=== PATIENT | female | born 1970 | race Caucasian/White ===

== ENCOUNTER 2016-10-18 20:28 | Emergency (ER) ==
[2016-10-18 21:14] LABS: MANUAL DIFF NEEDED? NO
--- NOTE | 2016-10-18 21:14 | ED EKG INTERP ---
EKG Interpretation - EKG Time of EKG reading by physician:: 20:38 EKG Read and Signed by:: Frederick Allen EKG Interpretation (*Must complete 3 of following elements*): Normal Rate: 97 Rhythm: NSR Comments: Normal ECG Attestation - Scribe Verification/Attestation Scribe:: Zahraa Sen Acting as Scribe for:: Frederick Allen Scribe documention review:: This chart was documented by a scribe and accurately reflects the service the provider performed and the decisions made by the provider.
[2016-10-18 21:19] LABS: BASO% 0.7 % (0.0-0.8); EOS# 0.25 X1000 (0.0-0.7); EOS% 2.7 % (0.0-10.0); HEMATOCRIT 35.7 % (37.0-47.0); HEMOGLOBIN 11.9 g/dL (12.0-16.0); IMM GRAN# 0.05 X1000 (0.0-0.04); IMM GRAN% 0.5 % (0.0-0.5); LYMPH# 2.61 X1000 (1.2-3.4); LYMPH% 27.7 % (20.5-51.1); MCH 29.5 PG (27-31); MCHC 33.3 g/dL (33-37); MCV 88.6 FL (81-99); MONO# 0.45 X1000 (0.11-0.59); MONO% 4.8 % (1.7-9.3); MPV 9.6 FL (7.4-10.4); NEUT% 63.6 % (42.2-75.2); PLT 270 X1000 (130-400); RBC 4.03 XMIL (4.2-5.4)
[2016-10-18 21:21] LABS: URINE CULTURE NEEDED? NO; URINE MICRO REVIEW NEEDED? NO; URINE SOURCE CLEAN CATCH
[2016-10-18 21:33] LABS: BILIRUBIN URINE NEGATIVE (NEGATIVE); BLOOD URINE NEGATIVE (NEGATIVE); COLOR YELLOW; GLUCOSE URINE NEGATIVE (NEGATIVE); LEUKOCYTES URINE NEGATIVE (NEGATIVE); NITRITE URINE NEGATIVE (NEGATIVE); PH URINE 5.5; PROTEIN URINE NEGATIVE (NEGATIVE); SP GRAVITY URINE 1.014; TURBIDITY URINE CLEAR (CLEAR); UR EPITHELIAL CELLS <10 /HPF (<10); URINE BACTERIA NEGATIVE /HPF; URINE RBC <10 /HPF (<10); URINE WBC <10 /HPF (<10); UROBILINOGEN URINE NORMAL (NORMAL)
[2016-10-18 21:37] LABS: ALBUMIN 3.8 g/dL (3.5-5.0); POTASSIUM 3.7 mmol/L (3.5-5.1); TOTAL BILIRUBIN 0.35 mg/dL (0.20-1.00); TOTAL PROTEIN 7.3 g/dL (6.3-8.3)
--- NOTE | 2016-10-18 23:00 | PROVIDER DOCUMENTATION ---
HPI-General Adult - General Chief Complaint: General Adult Stated Complaint: BUSCH, TINGLING IN LT ARM, BOTH LEGS AND FEET Time Seen by Provider: 10/18/16 21:26 Source: patient Allergies/Adverse Reactions: Patient Allergies Allergy/AdvReac Type Severity Reaction Status Date / Time No Known Allergies Allergy Verified 10/18/16 22:45 Home Medications: Home Medication List Medication Instructions Recorded Confirmed Last Taken Type Indomethacin 50 mg PO TID PRN #20 capsule 05/26/16 10/18/16 06/26/16 21:00 Rx Allopurinol 1 tab PO BID 06/08/16 06/27/16 10/18/16 History Cholecalciferol (Vitamin D3) 2,000 unit PO DAILY 10/18/16 10/18/16 10/18/16 History [Vitamin D3] Dicyclomine [Bentyl] 20 mg PO BID #20 capsule 10/18/16 Unknown Rx Phentermine HCl [Adipex-P] 37.5 mg PO DAILY 10/18/16 10/18/16 10/18/16 History - History of Present Illness -Gen Adult Nature of Presenting Problems: Pt. is 46 yof that presents with c/o LUQ pain and tingling in her hands and feet. Pt. reports she woke up this morning with pain. Pt. denies any other symptoms. Pt. reports she has had her GB removed. Location of Pain/Injury: reports: abdomen. denies: head, face, mouth, neck, chest, upper extremity, hand(s), back, pelvis, genitalia, lower extremity, feet , upper body, lower body, generalized Pain Radiation: reports: LUQ Quality of Pain: reports: sharp, stabbing. denies: aching, burning, cramping, dull, fullness, indigestion, pressure, tearing, throbbing, tightness Severity: reports: moderate. denies: mild, severe Onset/Duration: reports: abrupt, this morning Timing: reports: still present. denies: improving, gone now, resolved prior to arrival, intermittent, constant, changing over time, getting worse Context/Activities at Onset: reports: sleep. denies: recent emotional stress, recent physical stress, recent trauma history, possible bad food, cold exposure , out of country travel Modifying Factors: improves with: nothing Associated Symptoms: denies: anxiety, arm pain, back/neck pain, chest pain, constipation, cough, diaphoresis, diarrhea, dizziness, EENT symptoms, fatigue, fever/chills, genitourinary problems, headaches, heartburn, joint pain, loss of appetite, malaise, muscle aches, sinus congestion/drainage, nausea, rash, seizure, shortness of breath, sensory/motor loss, pain with inspiration, swelling/mass in abdomen, syncope, vomiting, weakness, trouble walking Similar Symptoms Previously?: Yes Recently seen or treated by another doctor?: No Review of Systems - Adult - REVIEW OF SYSTEMS - ADULT Constitutional: reports: see HPI. denies: chills, fever, fatique Eyes: reports: see HPI. denies: discharge, blurred vision, double vision Ears, Nose, Mouth & Throat: reports: see HPI. denies: ear pain, hearing loss, sinus problem, nose pain, loose teeth, mouth/dental pain, throat pain, throat swelling Cardiovascular: reports: see HPI. denies: chest pain, edema, irregular heart rate, orthopnea, syncope Respiratory: reports: see HPI. denies: cough, dyspnea on exertion, pleurisy, shortness of breath, wheezing Gastrointestinal: reports: see HPI, abdominal pain. denies: hematemesis, diarrhea, nausea, vomiting Genitourinary: reports: see HPI. denies: dysuria, discharge, frequent UTI's, hematuria, hesitency, urgency Musculoskeletal: reports: see HPI. denies: bone pain, back pain, joint pain, muscle aches, neck pain Integumentary: reports: see HPI. denies: hives, itching, rash, skin thickening Neurological: reports: see HPI. denies: ataxia, headache/migraines, numbness, seizure, tremors Psychiatric: reports: see HPI. denies: anxiety, depression, emotional problems , insomnia, panic attacks, suicidal thoughts Past History - Adult - PAST MEDICAL HISTORY-ADULT Review of Records: reports: Old Records Reviewed, Nursing Assessment Review, Medications Reviewed, Social history reviewed & non-contributory. Major Childhood Illnesses: reports: denies history Cardiovascular: reports: denies history Respiratory: reports: sleep apnea Gastrointestinal: reports: GERD Obstetrical/Gynecological: reports: denies history Genitourinary: reports: denies history Musculoskeletal: reports: chronic pain, other (gout, osteoarthritis) Neurological: reports: denies history Endocrine/Immune: reports: denies history Other Conditions: reports: other (gout) Additional History: Frequent ear infections - PRIOR SURGERIES/PROCEDURES Surgical/Procedure History: reports: cholecystectomy, hysterectomy, , other (tubal ligation) - PRIOR HOSPITALIZATIONS Prior Hospitalizations: reports: for other non-related - IMMUNIZATION STATUS Childhood Immunizations: See Nurse Assessment Flu Vaccine: See Nurse Assessment - FAMILY HISTORY Family History: reviewed, not pertinent - SOCIAL HISTORY Smoking: quit greater than 1 year Physical Exam-General - PHYSICAL EXAM-ADULT Initial Vital Signs Reviewed: Yes - CONSTITUTIONAL General Appearance: alert, mild distress, obese. negative: thin, anxious, lethargic, slow to respond, obtunded, combative - EYES Eyes: PERRL/EOMI, pink conjunctivae. negative: conjuctival exudate, scleral icterus, subconjunctival hemorrhage - HEAD, EARS, NOSE, MOUTH & THROAT HENMT: normocephalic/atraumatic, moist mucous membranes. negative: angioedema, frontal tenderness, maxillary tenderness - NECK Neck: non-tender, full range of motion, supple, normal inspection. negative: lymphadenopathy, trachial deviation, thyromegaly - RESPIRATORY Respiratory: lungs clear, normal breath sounds. negative: crackles, rales, rhonchi, stridor, wheezing - CARDIOVASCULAR Cardiovascular: normal peripheral pulses, regular rate, rhythm, no edema, no JVD , no murmur. negative: extra beats, friction rub, irregularly irregular - CHEST (BREASTS) Chest/Breast: deferred - GASTROINTESTINAL (ABDOMEN) Abdominal Exam: non tender, soft, abnormal bowel sounds (hypoactive). negative : distended, guarding, rigid, rebound, tenderness, hernia, mass - GENITOURINARY Female Genitalia/Pelvic Exam: deferred Rectal Exam: deferred Hemoccult Exam: deferred - LYMPHATIC Lymphatic: no adenopathy. negative: axilla node tender, cervical node tenderness - MUSCULOSKELETAL Back Exam: normal inspection, no CVA tenderness, no vertebral tenderness. negative: ecchymosis, swelling, vertebral tenderness Extremity: normal range of motion, non-tender, normal gait, normal inspection. negative: deformity, erythema, inflammation, swelling, tenderness Peripheral Pulses: radial (R): 2+, radial (L): 2+ - SKIN Integumentary: normal color, normal turgor, warm/dry. negative: cyanosis, diaphoresis, ecchymosis, erythema, jaundice, mottled, pallor, petechiae, purpura , rash, swelling, tenderness - NEUROLOGIC Neurologic: grossly normal, no motor/sensory deficits. negative: aphasia, facial droop, focal weakness, motor weakness, sensory deficit - PSYCHIATRIC Psych/Mental Status: normal mood/affect, normal thought content, normal thought process, oriented x 3. negative: anxious, paranoid, tearful Progress - PLAN OF CARE/RESULTS Progress/Plan/Lab Results: Discussed results and plan of care with patient. Patient agrees with plan and verbalizes understanding. Vital Signs Temp Pulse Resp BP Pulse Ox 10/18/16 20:43 97.5 F L 96 H 24 172/90 100 No Known Allergies Allergy (Verified 10/18/16 22:45) Indomethacin 50 mg PO TID PRN #20 capsule 05/26/16 Allopurinol 1 tab PO BID 06/08/16 Cholecalciferol (Vitamin D3) [Vitamin D3] 2,000 unit PO DAILY 10/18/16 Phentermine HCl [Adipex-P] 37.5 mg PO DAILY 10/18/16 Dietary Diet NPO Start Nadira Oct 18 2036 I&O 10/17/16 10/18/16 10/19/16 06:59 06:59 06:59 Output Total 40 Balance -40 Laboratory 10/18/16 10/18/16 10/18/16 21:14 20:53 20:53 WBC 9.42 RBC 4.03 L Hgb 11.9 L Hct 35.7 L MCV 88.6 MCH 29.5 MCHC 33.3 RDW Std Deviation 14.2 Plt Count 270 MPV 9.6 Immature Gran % (Auto) 0.5 Neut % (Auto) 63.6 Lymph % (Auto) 27.7 [place] % (Auto) 4.8 Eos % (Auto) 2.7 Baso % (Auto) 0.7 Immature Gran # (Auto) 0.05 H Neut # (Auto) 5.99 Lymph # (Auto) 2.61 [place] # (Auto) 0.45 Eos # (Auto) 0.25 Baso # (Auto) 0.07 Sodium 143 Potassium 3.7 Chloride 104 Carbon Dioxide 28 Anion Gap 11 BUN 11 Creatinine 1.0 H Estimated GFR/1.73 m2 60 BUN/Creatinine Ratio 11 Glucose 117 H Calculated Osmolality 285 Calcium 9.0 Total Bilirubin 0.35 AST 33 H ALT 38 H Alkaline Phosphatase 91 Total Protein 7.3 Albumin 3.8 Globulin 3.5 Albumin/Globulin Ratio 1.1 Amylase 23 Lipase 38 Urine Source CLEAN CATCH Urine Color YELLOW Urine Turbidity CLEAR Urine pH 5.5 Ur Specific [place] 1.014 Urine Protein NEGATIVE Ur Glucose (Stick) NEGATIVE Ur Ketones (Stick) NEGATIVE Urine Blood NEGATIVE Urine Nitrite NEGATIVE Urine Bilirubin NEGATIVE Urobilinogen Dipstick NORMAL Urine Leukocytes NEGATIVE Urine WBC (Auto) <10 Urine RBC (Auto) <10 U Epithel Cells (Auto) <10 Urine Bacteria (Auto) NEGATIVE Orders Category Date Time Status Saline Loc DIRECTED Care 10/18/16 20:37 Active NPO Diet 10/18/16 20:37 Active FLAT/UPRIGHT ABD/1 VIEW CHEST [RAD] Stat Exams 10/18/16 21:51 Taken AMYLASE [CHEM] Stat Lab 10/18/16 20:53 Completed CBC WITH ELECTRONIC DIFF [HEME] Stat Lab 10/18/16 20:53 Completed COMPREHENSIVE METABOLIC PANEL [CHEM] Stat Lab 10/18/16 20:53 Completed LIPASE [CHEM] Stat Lab 10/18/16 20:53 Completed URINALYSIS W/POSS RFLX CULT [URINALYSIS] Stat Lab 10/18/16 21:14 Completed EKG [EKG] Stat Ther 10/18/16 20:35 Ordered Laboratory Tests 10/18/16 10/18/16 10/18/16 20:53 20:53 21:14 WBC 9.42 RBC 4.03 L Hgb 11.9 L Hct 35.7 L MCV 88.6 MCH 29.5 MCHC 33.3 RDW Std Deviation 14.2 Plt Count 270 MPV 9.6 Immature Gran % (Auto) 0.5 Neut % (Auto) 63.6 Lymph % (Auto) 27.7 [place] % (Auto) 4.8 Eos % (Auto) 2.7 Baso % (Auto) 0.7 Immature Gran # (Auto) 0.05 H Neut # (Auto) 5.99 Lymph # (Auto) 2.61 [place] # (Auto) 0.45 Eos # (Auto) 0.25 Baso # (Auto) 0.07 Sodium 143 Potassium 3.7 Chloride 104 Carbon Dioxide 28 Anion Gap 11 BUN 11 Creatinine 1.0 H Estimated GFR/1.73 m2 60 BUN/Creatinine Ratio 11 Glucose 117 H Calculated Osmolality 285 Calcium 9.0 Total Bilirubin 0.35 AST 33 H ALT 38 H Alkaline Phosphatase 91 Total Protein 7.3 Albumin 3.8 Globulin 3.5 Albumin/Globulin Ratio 1.1 Amylase 23 Lipase 38 Urine Source CLEAN CATCH Urine Color YELLOW Urine Turbidity CLEAR Urine pH 5.5 Ur Specific [place] 1.014 Urine Protein NEGATIVE Ur Glucose (Stick) NEGATIVE Ur Ketones (Stick) NEGATIVE Urine Blood NEGATIVE Urine Nitrite NEGATIVE Urine Bilirubin NEGATIVE Urobilinogen Dipstick NORMAL Urine Leukocytes NEGATIVE Urine WBC (Auto) <10 Urine RBC (Auto) <10 U Epithel Cells (Auto) <10 Urine Bacteria (Auto) NEGATIVE - XRAY 1 XRAY Study: Chest, Abdomen XRAY Interpretation: DANYELLE Savage) Departure - Departure Time of Disposition Order: 23:03 DIAGNOSIS: Hyperventilation Abdominal pain Qualifiers: Abdominal location: left upper quadrant Qualified Code(s): R10.12 - Left upper quadrant pain Headache Qualifiers: Headache type: unspecified Headache chronicity pattern: acute headache Intractability: not intractable Qualified Code(s): R51 - Headache Disposition: HOME 01 Certified Medical Emergency: Emergent Condition: Stable Additional Instructions: Follow up with primary care physician Take medications as directed Return to ED for any concerns or worsening of symptoms ED Follow Up Instructions: You have been treated by a care provider in the Emergency Department. These instructions are being provided to you so you can have an understanding of how to care for yourself upon discharge. Upon discharge from the Emergency Department, you are responsible for making arrangements for follow-up care by a physician of your choice. Take all prescribed medications as directed. Return to the Emergency Department immediately for any new or worsening symptoms. You may call the Physician Referral phone number at [phone] to obtain a list of Physicians who are taking new patients. Prescriptions: Dicyclomine [Bentyl] 20 mg PO BID #20 capsule Instructions: Migraine Headache, [id number] Attestation - Physician/ ANGELLA Attestation Patient care was provided by Advanced Practice Provider:: Yes Advanced Practice Provider:: Dago Oshea Advanced Practice Provider documentation review:: The Mid-level provider documentation, treatment plan and medical decision making was reviewed by the physician who agrees with all treatment and medical decision making by the P.
[2016-10-18] MEDS ORDERED: ULTRAM PO ONE (23:04)
[2016-10-18] MEDS ORDERED: LEVSIN-SL SL ONE (23:04)
[2016-10-18 23:20] VITALS: BP 162/95
--- NOTE | 2016-10-19 07:15 | Diag Imaging Result Document ---
PROCEDURE NAME: FLAT/UPRIGHT ABD/1 VIEW CHEST - 10/18/2016 FLAT AND UPRIGHT AND CHEST, FOUR VIEWS: FINDINGS: The lungs are well expanded. No pneumonia. No cardiomegaly. No free air beneath the diaphragm. The gallbladder has been removed. No bowel obstruction. No abnormal abdominal or pelvic calcifications. Mild scoliosis with degenerative spine changes. IMPRESSION: No acute abnormality.
--- NOTE | 2016-10-19 09:21 | EKG Report ---
Test Performed on : 10/18/2016 8:38:16 PM Test Reason : cp Blood Pressure : / mmHG Vent. Rate : 097 BPM Atrial Rate : 097 BPM P-R Int : 168 ms QRS Dur : 088 ms QT Int : 340 ms P-R-T Axes : 034 -05 021 degrees QTc Int : 431 ms Normal sinus rhythm. Normal ECG When compared with ECG of 11-FEB-2016 23:54, No significant change was found Unconfirmed Result
== END 2016-10-18 23:30 | disposition home or self-care (01) ==
LOC: ED 20:28
DX: R10.12 Left upper quadrant pain (principal); R51 Headache; R06.4 Hyperventilation; G89.29 Other chronic pain; M10.9 Gout, unspecified; M19.90 Unspecified osteoarthritis, unspecified site; Z87.891 Personal history of nicotine dependence; E66.9 Obesity, unspecified; Z79.899 Other long term (current) drug therapy
CPT/HCPCS: 74022; 80053; 81001; 82150; 83690; 85025; 93005